=== PATIENT | male | born 1955 | race Caucasian/White ===

== ENCOUNTER → 2017-06-01 | Outpatient (CLI) | payer BC ==
[~2017-06-01] MED LIST: ACET-687 PO; AMLO5TAB2 PO; CETI10TA24 PO; GUAI600T31 PO; HYDR25TA9 PO; KENALOG-40 IM ONE; LABE200T3 PO; LACT1CAP34 PO; LAMO150T PO; LIDOCAINE 2% VIAL SQ ONE; LISI40TA PO; MULT-186 PO; SPIR25TA PO
== END | disposition home or self-care (01) ==
LOC: RAD 13:10
PROVIDERS: ATTEND Orthopaedic Surgery
DX: M16.11 Unilateral primary osteoarthritis, right hip (principal)
CPT/HCPCS: 20610; 77002; J2001; J3301; Q9967

== ENCOUNTER 2017-07-03 01:24 | Inpatient (IN) | payer BC ==
[2017-06-29 15:46] VITALS: BP 144/83
--- NOTE | 2017-06-29 16:05 | PCM.EKG ---
[facility] Test Date: 2017-06-29 Test Time: 16:03:45 Pat Name: YO HERNANDEZ Department: Room: Gender: M Quality Control Lead: TERESSA : 1955 Requested By: LUIS DANIEL MYLES Order Number: [id number] Reading MD: Measurements Intervals [place] Rate: 57 P: 64 OK: 182 QRS: 63 QRSD: 98 T: 65 QT: 436 QTc: 424 Interpretive Statements Sinus bradycardia Otherwise normal ECG No previous ECG available for comparison Please click the below link to view image of tracing.
[2017-06-29 16:29] LABS: BASOPHIL % 0.8 % (0.0-0.2); EOSINOPHIL # 0.2 10^3/uL (0.0-0.2); EOSINOPHIL % 3.6 % (0.0-5.0); HEMOGLOBIN 13.7 g/dL (13.9-16.3); LYMPHOCYTES # 1.7 10^3/uL (1.0-4.8); LYMPHOCYTES % 32.3 % (24.0-44.0); MEAN CELL HGB 31.2 pg (26-34); MEAN CELL HGB CONCENTRATION 35.2 g/dL (33-37); MEAN CORP VOLUME 88.6 fL (78-100); MEAN PLATELET VOLUME 8.6 fL (7.8-11.0); MONOCYTES # 0.9 10^3/uL (0.3-0.8); MONOCYTES % 17.1 % (5.0-12.0); NEUTROPHIL # 2.4 10^3/uL (1.8-7.7); NEUTROPHILS % 46.2 % (41.0-85.0); WHITE BLOOD CELL 5.3 10^3/uL (4.5-11.0)
[2017-06-29 16:54] LABS: CALCIUM 8.9 mg/dL (8.4-10.5); CARBON DIOXIDE 26.4 mmol/L (20.0-32)
[~2017-07-03] VITALS: Ht 172.7 cm; Wt 80.5 kg
[2017-07-03] VITALS (9 sets, daily range): BP systolic 118–178; BP diastolic 62–99
[~2017-07-03 01:24] MED LIST changes: +ACET500T73 PO; +CARV40CP PO; -KENALOG-40 IM ONE; -LIDOCAINE 2% VIAL SQ ONE
[2017-07-03] MEDS ORDERED: CELEBREX PO ONE ×4 (04:30→21:00)
[2017-07-03] MEDS ORDERED: NEURONTIN PO SCH ×2 (04:30→09:00)
[2017-07-03] MEDS ORDERED: TYLENOL PO ONE ×2 (04:30→09:00)
[2017-07-03] MEDS ORDERED: ANCEF ONE (05:05)
[2017-07-03] MEDS ORDERED: NS 100ML 100 ML IV ONE ×2 (05:06→09:33)
[2017-07-03] MEDS ORDERED: LACTATED RINGERS 1,000 ML IV ONE (06:00)
[2017-07-03] MEDS ORDERED: NEOSTIGMINE ONE (06:22)
[2017-07-03] MEDS ORDERED: TORADOL ONE (06:22)
[2017-07-03] MEDS ORDERED: DECADRON ONE (06:22)
[2017-07-03] MEDS ORDERED: ZOFRAN ONE (06:22)
[2017-07-03] MEDS ORDERED: SUBLIMAZE ONE ×2 (06:23→13:36)
[2017-07-03] MEDS ORDERED: ZEMURON IV ONE ×2 (06:23→14:29)
[2017-07-03] MEDS ORDERED: DIPRIVAN IV ONE (06:23)
[2017-07-03] MEDS ORDERED: VERSED ONE (06:23)
[2017-07-03] MEDS ORDERED: LIDOCAINE 2% VIAL ONE (06:24)
[2017-07-03] MEDS ORDERED: NAROPIN 0.5% 5 MG/ML VIAL ONE ×2 (07:36→08:24)
[2017-07-03] MEDS ORDERED: CLONIDINE 1,000 MCG/10 ML VIAL EP ONE (07:37)
[2017-07-03] MEDS ORDERED: SENSORCAINE-MPF 0.25% VIAL ONE ×2 (07:37→08:03)
[2017-07-03 08:15] LABS: CALCIUM 9.3 mg/dL (8.4-10.5); CARBON DIOXIDE 25.6 mmol/L (20.0-32)
[2017-07-03] MEDS ORDERED: ZOFRAN IV PRN (09:00)
[2017-07-03] MEDS ORDERED: DILAUDID IV PRN (09:00)
[2017-07-03] MEDS ORDERED: TYLENOL PO SCH ×2 (09:00→09:30)
[2017-07-03] MEDS ORDERED: NS 250ML 250 ML IV ONE (09:33)
[2017-07-03] MEDS ORDERED: SODIUM CHLORIDE IR ONE (09:33)
[2017-07-03] MEDS ORDERED: NS 3000ML IRR IR ONE (09:33)
[2017-07-03] MEDS ORDERED: TRANEXAMIC ACID IV ONE (10:23)
[2017-07-03] MEDS ORDERED: LACTATED RINGERS 1,000 ML ONE (13:33)
[2017-07-03] MEDS ORDERED: EPHEDRINE SULFATE ONE (13:34)
[2017-07-03] MEDS ORDERED: NORCURON ONE (13:34)
[2017-07-03] MEDS: SUBLIMAZE IV PRN ×3 (13:39→15:20)
[2017-07-03] MEDS ORDERED: ANCEF IV SCH (14:00)
[2017-07-03] MEDS ORDERED: REGLAN IV PRN (14:00)
[2017-07-03] MEDS ORDERED: NS IV SCH (14:00)
[2017-07-03] MEDS ORDERED: LACTATED RINGERS 1,000 ML IV SCH (14:00)
[2017-07-03] MEDS ORDERED: ANCEF 2 GM/D5W 50ML IV SCH (14:00)
[2017-07-03] MEDS ORDERED: CEPACOL SORE THROAT LOZENGE MM PRN (14:00)
--- NOTE | 2017-07-03 14:07 | DIREP ---
PROCEDURE:XRAY HIP MIN 2VW-RT COMPARISON:None. INDICATIONS:postop FINDINGS: BONES:Status post total right hip replacement. Hardware intact. Alignment is satisfactory JOINTS:Normal. SOFT TISSUES:Normal. OTHER:No additional findings. CONCLUSION:Satisfactory total right hip replacement Dictated by: Art Barcenas MD on 07/03/2017 at 02:06 PM
[2017-07-03] MEDS: TYLENOL #4 PO PRN ×3 (14:29→23:20)
--- NOTE | 2017-07-03 14:30 | NUR ---
C/O OF PAIN Pt C/O "ACHING PAIN AT 7/10 "RATING SCALE ON R HIP, ADMINISTERED TYLENOL #4 2 TBS PRN PER ORDER, WILL REASSESS THE PAIN.
--- NOTE | 2017-07-03 14:30 | NUR ---
ARRIVAL Pt ARRIVED TO THE UNIT ASSISTED BY OR NURSES ZULEYMA RN AND ELIZABETH RN IN HOSPITAL BED, PT AO X 4, SURGICAL DRESSING ON ON R HIP, SAND BAG ON PER DR. MYLES ORDER TILL 4 PM TODAY, ORIENTED TO ROOM, BATHROOM, CALL LIGHT, TV REMOTE. OFFERED FLUIDS AND SNACKS. IV LR INFUSING TO L FA WITH 20 G, ALEXANDRA FOOT SCD ON. INITIATED SPECIAL V/S. MOSCOSO INTACT DRAINING CLEAR YELLOW URINE. WILL CONTINUE TO MONITOR THE Pt. HEAD TO TOE ASSESSMENT COMPLETED.
[2017-07-03] MEDS: NS IV SCH ×2 (15:59→23:21)
[2017-07-03] MEDS: ANCEF IV SCH ×2 (15:59→23:21)
[2017-07-03] MEDS ORDERED: TYLENOL #4 PO SCH (16:00)
--- NOTE | 2017-07-03 16:03 | HPH ---
ADMIT DATE: 07/03/2017 CHIEF COMPLAINT: Painful right hip. HISTORY OF PRESENT ILLNESS: A 62-year-old male with right hip pain for several years. It has gotten worse in the last 3 months. He is to the point now where he has to use a cane to ambulate. He has night pain as well as pain with household ambulation. The patient rates his pain as 8-9/10 in the last 2 months. He has been on ibuprofen 600 mg 3 times a day as well as Tylenol and been on a home exercise program. He has gotten progressively worse to the point where he cannot do any of his daily activities. He has had to use a cane in the last 2-3 weeks and is being admitted for right total hip arthroplasty. MEDICATIONS: His medications include Coreg, lisinopril, amlodipine. PAST MEDICAL HISTORY: Medical problems include hypertension as well as seizure disorder. PAST SURGICAL HISTORY: Left total hip arthroplasty, cataract, ORIF of his left clavicle, right knee arthroscopy, herniorrhaphy. ALLERGIES: THE PATIENT IS ALLERGIC TO SULFA WELL TRAMADOL. FAMILY HISTORY: Positive for pancreatic cancer, lupus and hypertension. REVIEW OF SYSTEMS: Negative for chest pain, shortness of breath, nausea, vomiting, melena, hematochezia, dysuria, hematuria, fever, chills and weight loss. PHYSICAL EXAMINATION: GENERAL: Shows a healthy 62-year-old male in no acute distress. HEENT: Within normal limits. CHEST: Clear to auscultation. HEART: Regular rate and rhythm, no murmur. ABDOMEN: Soft and nontender. EXTREMITIES: Right hip has full extension. He can flex the hip to 110 degrees. His external rotation is 30, he has 20 degrees of internal rotation with pain. There is no shortening. NEUROLOGIC: He is awake and alert. He is oriented x 3. His cranial nerves 2-12 are grossly intact. He has 5/5 strength in all muscle groups of both lower and upper extremities bilaterally, symmetric. IMAGING STUDIES: X-rays in his hip as well as his MRI scan show severe arthritis about the right hip with [id number] medially and inferiorly. He also has a labral tear. ASSESSMENT: Osteoarthritis, right hip. Other diagnoses include hypertension and seizure disorder. PLAN: The patient is being admitted for right total hip arthroplasty. He understands the risk and hazards involved. Adriano Clark MD DR: NELSON/henry JOB# [id number]
--- NOTE | 2017-07-03 16:14 | OPH ---
DATE OF SURGERY: 07/03/2017 PREOPERATIVE DIAGNOSIS: Osteoarthritis of the right hip. POSTOPERATIVE DIAGNOSIS: Osteoarthritis of the right hip. OPERATIVE PROCEDURE: Right total hip arthroplasty. SURGEON: Adriano Clark MD ANESTHESIA: General endotracheal. BLOOD LOSS: 500 mL. COMPLICATIONS: None. IMPLANTS: We used a size 4 Medacta AMIS stem cemented with the 56 Versafit cup and a 56 dual-articulating liner. The head was ceramic, 28 mm short neck. DESCRIPTION OF INDICATIONS: The patient is a 62-year-old male with pain about the right hip for several years intermittently, but quite severe in the last 3 months. He has gotten to the point where he had to use a cane to ambulate. He rated his pain as 8-9/10. He takes Tylenol as well as Advil for the pain. He had pain with just household ambulation. He had difficulty walking even in his home, also had night pain. The patient's x-rays show that he was gvqy-yq-eksz medially and inferiorly about the right hip as well as superior and lateral osteophytes about the acetabulum. The patient was taken to the operating room for total hip arthroplasty for pain relief. DESCRIPTION OF PROCEDURE: The patient was placed in the operating table in the supine position. A general endotracheal anesthetic was induced without difficulty. The patient had the right foot well padded with cast padding as well as wet wrap. He was placed in the traction boot and reinforced with a small piece of egg crate mattress. The patient then had the right lower extremity attached to the traction unit. The patient had the right lower extremity then sterilely prepped and draped. The patient had an anterior incision made about the hip. Incision was taken through the skin and subcutaneous tissues. The bleeding was controlled with cautery. The tensor fascia was opened and the muscle belly was retracted laterally. The rectus fascia was opened and the rectus muscle was retracted medially. The circumflex vessels were identified and coagulated with the Aquamantys device. The fat pad over the anterior capsule was then excised. A capsular incision was made and the capsule was retracted proximally and laterally. Femoral neck cut was then made with the power saw. The head was removed with a corkscrew device. The fovea was cleared of any soft tissue and the bleeding was controlled with the Aquamantys device. The labrum was excised and the piriformis tendon was released. The patient then had the acetabulum sequentially reamed up to a 56. 56 trial cup had a good fit. The 56 acetabular component was then impacted into position using a 56 Versafit cup. The patient then had the anterior capsule released. The hip was placed in maximal external rotation as well as hyperextension. The canal was opened with a curette and a box chisel. The patient then had the canal rasped with the starter rasp and then it was sequentially rasped up to a size 4. We did a trial reduction with a 4 stem and a minus neck length. There was good stability clinically. Radiographically, the sizing of the components and the positioning of the components appeared to be satisfactory. The leg lengths seemed to be satisfactory. The trial components were then removed. The wounds were copiously irrigated. The bone ends were dried. A small cement restrictor was placed at 12 cm. The canal was then again irrigated and dried. The cement was introduced and hand packed. The stem was then cemented into position. Once the cement was removed and the cement had hardened, we did another trial reduction with the minus neck length and again there was good stability and the leg length appeared appropriate. The minus small head 28 mm ceramic with the 56 dual-articulating cup was then impacted on to the Edmondson taper neck. The hip was then reduced. Again, there was good stability and again radiographically the sizing and the leg lengths appeared appropriate. The patient then had the wounds irrigated. The Betadine was allowed to stay in the wound for 3 minutes. The patient then had 20 mL of tranexamic acid placed in the capsule. The capsule was closed with a #2 PDS in an interrupted manner. The remaining 30 mL of tranexamic acid was then placed beneath the tensor fascia and the tensor fascia was closed with #1 PDS barbed in a running manner. The wounds were irrigated and then the subcutaneous was closed with 2-0 Monocryl barbed in a running manner. The skin was closed with meggan. A large Aquacel dressing was applied and the patient was extubated in the operating room, sent to recovery in stable condition. Adriano Clark MD DR: NELSON/henry JOB# [id number]
[2017-07-03 18:27] LABS: HEMOGLOBIN 12.6 g/dL (13.9-16.3); MEAN CELL HGB 30.9 pg (26-34); MEAN CELL HGB CONCENTRATION 34.1 g/dL (33-37); MEAN CORP VOLUME 90.7 fL (78-100); MEAN PLATELET VOLUME 8.3 fL (7.8-11.0); RED CELL DISTRIBUTION WIDTH 12.1 % (11.5-14.5); WHITE BLOOD CELL 8.5 10^3/uL (4.5-11.0)
--- NOTE | 2017-07-03 18:45 | NUR ---
REPORT REPORT RECEIVED FROM Demetrius PERDOMO LVN. PT IN BED WITH AND BROTHER AT BEDSIDE. REQUESTING PAIN MEDICATION AT THIS TIME BUT NO OTHER DISTRESS NOTED AT THIS TIME. ASSUMED CARE OF PT AT THIS TIME. Addendum: 07/04/17 at 0037 by KWESI ESPARZA RN-Juno YANG REPORT RECEIVED FROM Sarah ASENCIO RN.
--- NOTE | 2017-07-03 19:36 | PRM.PN ---
Subjective Subjective Date: Jul 03, 2017 Time: 19:35 Subjective Awake and alert Some hip pain VSS NVM+ HGB 12.4 Stable Patient History: FH: lupus 32 MOTHER, , Age:73 FH: lupus 32 MOTHER, , Age:73 Hypertension 32 MOTHER, , Age:73 G8 BROTHER No known health problems 33 FATHER No Family History of: Alzheimer's disease Asthma Cerebrovascular disorder Chronic obstructive pulmonary disease Congestive heart failure Diabetes insipidus Diabetes mellitus Parkinson's disease VTE VTE Risk Total Score: 2 VTE Risk Score VTE Risk: Score 0-1 = Low Risk (Aggressive mobilization; early ambulation; no VTE prophylaxis required) Score 2: Moderate Risk (Intermittent/Pneumatic Compression Device OR Lovenox/Heparin/Coumadin) Score 3-4: High Risk (Intermittent/Pneumatic Compression Device AND Lovenox/Heparin/Coumadin) Score > or =5: Highest Risk (Intermittent/Pneumatic Compression Device AND Lovenox/Heparin/Coumadin) Review of Systems Allergies: Coded Allergies: Sulfa (Sulfonamide Antibiotics) (Verified Allergy, Severe, RASH ON FACE, ) tramadol (Verified Allergy, Severe, SEIZURES, 06/29/17) Scheduled Amlodipine Besylate (Amlodipine Besylate), 1 TAB PO DAILY, (Reported) Carvedilol Phosphate (Coreg Cr), 2 CAP PO DAILY, (Reported) Cetirizine Hcl (Zyrtec), 1 TAB PO DAILY, (Reported) Guaifenesin (Mucinex), 1 TAB PO DAILY, (Reported) Hydrochlorothiazide (Hydrochlorothiazide), 1 TAB PO DAILY, (Reported) Lactobacillus Acidophilus (Probiotic), 1 EACH PO DAILY, (Reported) Lamotrigine (Lamotrigine), 1 TAB PO BID, (Reported) Lisinopril (Lisinopril), 1 TAB PO DAILY, (Reported) Spironolactone 25MG (Aldactone 25MG), 1 TAB PO DAILY, (Reported) Scheduled PRN Acetaminophen (Acetaminophen), 2 TAB PO TID PRN for PAIN, (Reported) Discontinued Medications Acetaminophen With Codeine (Tylenol With Codeine #4 Tablet), 1-2 EACH PO Q4HR PRN for PAIN, (Reported) Discontinued Reason: No Longer Taking Labetalol Hcl (Labetalol Hcl), 2 TAB PO BID, (Reported) Discontinued Reason: No Longer Taking Multivitamin (Multi-Day Vitamins), 1 TAB PO DAILY, (Reported) Discontinued Reason: No Longer Taking Objective Vitals and I/O Vital Sign - Last 24 Hours 07/03/17 07/03/17 07/03/17 07/03/17 07:45 07:45 08:56 09:01 Temp 98.7 Pulse 65 59 58 Resp 18 18 18 B/P (MAP) 178/97 (124) 165/98 (120) 143/75 (97) Pulse Ox 98 99 99 O2 Delivery Room Air Room Air Room Air Room Air 07/03/17 07/03/17 07/03/17 07/03/17 13:20 13:20 13:34 13:50 Temp 97.8 98.3 98.0 Pulse 72 60 65 Resp 16 17 16 B/P (MAP) 126/71 (89) 123/71 (88) 119/67 (84) Pulse Ox 96 96 98 O2 Delivery Face Tent Face Tent Nasal Cannula O2 Flow Rate 10 07/03/17 07/03/17 07/03/17 07/03/17 14:02 14:30 14:30 15:12 Pulse 65 Resp 18 12 B/P (MAP) 118/62 (80) Pulse Ox 94 98 O2 Delivery Nasal Cannula Nasal Cannula Nasal Cannula O2 Flow Rate 2.00 2.00 07/03/17 07/03/17 15:12 15:30 Temp 97.1 Pulse 66 91 Resp 12 20 B/P (MAP) 118/74 (89) Pulse Ox 98 95 O2 Delivery Nasal Cannula Room Air O2 Flow Rate 2.00 FiO2 28 Medication Reconciliation Scheduled Amlodipine Besylate (Amlodipine Besylate), 1 TAB PO DAILY, (Reported) Carvedilol Phosphate (Coreg Cr), 2 CAP PO DAILY, (Reported) Cetirizine Hcl (Zyrtec), 1 TAB PO DAILY, (Reported) Guaifenesin (Mucinex), 1 TAB PO DAILY, (Reported) Hydrochlorothiazide (Hydrochlorothiazide), 1 TAB PO DAILY, (Reported) Lactobacillus Acidophilus (Probiotic), 1 EACH PO DAILY, (Reported) Lamotrigine (Lamotrigine), 1 TAB PO BID, (Reported) Lisinopril (Lisinopril), 1 TAB PO DAILY, (Reported) Spironolactone 25MG (Aldactone 25MG), 1 TAB PO DAILY, (Reported) Scheduled PRN Acetaminophen (Acetaminophen), 2 TAB PO TID PRN for PAIN, (Reported) Discontinued Medications Acetaminophen With Codeine (Tylenol With Codeine #4 Tablet), 1-2 EACH PO Q4HR PRN for PAIN, (Reported) Discontinued Reason: No Longer Taking Labetalol Hcl (Labetalol Hcl), 2 TAB PO BID, (Reported) Discontinued Reason: No Longer Taking Multivitamin (Multi-Day Vitamins), 1 TAB PO DAILY, (Reported) Discontinued Reason: No Longer Taking Course Blood Pressure Systolic: 118 Blood Pressure Diastolic: 74 Blood Pressure Mean: 89 Assessment/Plan Assessment/Plan Patient History: FH: lupus 32 MOTHER, , Age:73 FH: lupus 32 MOTHER, , Age:73 Hypertension 32 MOTHER, , Age:73 G8 BROTHER No known health problems 33 FATHER No Family History of: Alzheimer's disease Asthma Cerebrovascular disorder Chronic obstructive pulmonary disease Congestive heart failure Diabetes insipidus Diabetes mellitus Parkinson's disease LUIS DANIEL MYLES MD Jul 03, 2017 19:36
[2017-07-03] MEDS ORDERED: CELEBREX ONE (22:22)
[2017-07-03] MEDS ORDERED: TYLENOL PO PRN (22:30)
[2017-07-03] MEDS: LAMICTAL PO SCH (22:39)
[2017-07-03] MEDS: ZESTRIL PO SCH (22:42)
[2017-07-03] MEDS: ALDACTONE PO SCH (22:42)
[2017-07-03] MEDS: HYDROCHLOROTHIAZIDE PO SCH (22:43)
[2017-07-03] MEDS: NORVASC PO SCH (22:43)
[2017-07-04] VITALS: BP 148/88
[2017-07-04] MEDS: TYLENOL #4 PO PRN ×5 (03:14→22:02)
[2017-07-04 04:00] VITALS: BP 144/84
[2017-07-04 05:24] LABS: HEMOGLOBIN 11.6 g/dL (13.9-16.3); MEAN CELL HGB 30.9 pg (26-34); MEAN CELL HGB CONCENTRATION 34.2 g/dL (33-37); MEAN CORP VOLUME 90.2 fL (78-100); MEAN PLATELET VOLUME 8.3 fL (7.8-11.0); RED CELL DISTRIBUTION WIDTH 12.1 % (11.5-14.5); WHITE BLOOD CELL 9.2 10^3/uL (4.5-11.0)
--- NOTE | 2017-07-04 07:04 | NUR ---
REPORT RECEIVED REPORT FROM CELIA OROSCO AND ASSUMED CARE OF PT
[2017-07-04 07:26] VITALS: BP 147/86
[2017-07-04] MEDS: ANCEF IV SCH (08:00)
[2017-07-04] MEDS: NS IV SCH (08:00)
--- NOTE | 2017-07-04 08:40 | NUR ---
Post op pain rounds POD #1 after hip surgery. Pt is lying in bed with family in room. Pt states pain was well controlled with block. Pt came by yesterday but pt was still too sleepy to ambulate. he was concerned with nausea from previous surgeries but was very greatful that he didn't experience any with this. No complications noted. pt is very pleased with anesthetic and pain block.
--- NOTE | 2017-07-04 08:46 | PRM.PN ---
Subjective Subjective Date: Jul 04, 2017 Time: 08:46 Subjective Pain ok this am VSS NVM+ HGB 11.6 Start PT Patient History: FH: lupus 32 MOTHER, , Age:73 FH: lupus 32 MOTHER, , Age:73 Hypertension 32 MOTHER, , Age:73 G8 BROTHER No known health problems 33 FATHER No Family History of: Alzheimer's disease Asthma Cerebrovascular disorder Chronic obstructive pulmonary disease Congestive heart failure Diabetes insipidus Diabetes mellitus Parkinson's disease VTE VTE Risk Total Score: 2 VTE Risk Score VTE Risk: Score 0-1 = Low Risk (Aggressive mobilization; early ambulation; no VTE prophylaxis required) Score 2: Moderate Risk (Intermittent/Pneumatic Compression Device OR Lovenox/Heparin/Coumadin) Score 3-4: High Risk (Intermittent/Pneumatic Compression Device AND Lovenox/Heparin/Coumadin) Score > or =5: Highest Risk (Intermittent/Pneumatic Compression Device AND Lovenox/Heparin/Coumadin) Review of Systems Allergies: Coded Allergies: Sulfa (Sulfonamide Antibiotics) (Verified Allergy, Severe, RASH ON FACE, ) tramadol (Verified Allergy, Severe, SEIZURES, 06/29/17) Scheduled Amlodipine Besylate (Amlodipine Besylate), 1 TAB PO DAILY, (Reported) Carvedilol Phosphate (Coreg Cr), 2 CAP PO DAILY, (Reported) Cetirizine Hcl (Zyrtec), 1 TAB PO DAILY, (Reported) Guaifenesin (Mucinex), 1 TAB PO DAILY, (Reported) Hydrochlorothiazide (Hydrochlorothiazide), 1 TAB PO DAILY, (Reported) Lactobacillus Acidophilus (Probiotic), 1 EACH PO DAILY, (Reported) Lamotrigine (Lamotrigine), 1 TAB PO BID, (Reported) Lisinopril (Lisinopril), 1 TAB PO DAILY, (Reported) Spironolactone 25MG (Aldactone 25MG), 1 TAB PO DAILY, (Reported) Scheduled PRN Acetaminophen (Acetaminophen), 2 TAB PO TID PRN for PAIN, (Reported) Discontinued Medications Acetaminophen With Codeine (Tylenol With Codeine #4 Tablet), 1-2 EACH PO Q4HR PRN for PAIN, (Reported) Discontinued Reason: No Longer Taking Labetalol Hcl (Labetalol Hcl), 2 TAB PO BID, (Reported) Discontinued Reason: No Longer Taking Multivitamin (Multi-Day Vitamins), 1 TAB PO DAILY, (Reported) Discontinued Reason: No Longer Taking Objective Vitals and I/O Vital Sign - Last 24 Hours 07/03/17 07/03/17 07/03/17 07/03/17 08:56 09:01 13:20 13:20 Temp 97.8 Pulse 59 58 72 Resp 18 18 16 B/P (MAP) 165/98 (120) 143/75 (97) 126/71 (89) Pulse Ox 99 99 96 O2 Delivery Room Air Room Air Face Tent O2 Flow Rate 10 07/03/17 07/03/17 07/03/17 07/03/17 13:34 13:50 14:02 14:30 Temp 98.3 98.0 Pulse 60 65 65 Resp 17 16 18 B/P (MAP) 123/71 (88) 119/67 (84) 118/62 (80) Pulse Ox 96 98 94 O2 Delivery Face Tent Nasal Cannula Nasal Cannula Nasal Cannula O2 Flow Rate 2.00 07/03/17 07/03/17 07/03/17 07/03/17 14:30 15:12 15:12 15:30 Temp 97.1 Pulse 66 91 Resp 12 12 20 B/P (MAP) 118/74 (89) Pulse Ox 98 98 95 O2 Delivery Nasal Cannula Nasal Cannula Room Air O2 Flow Rate 2.00 2.00 FiO2 28 07/03/17 07/03/17 07/03/17 07/03/17 20:00 21:00 21:28 22:42 Temp 98.0 Pulse 78 91 Resp 18 20 B/P (MAP) 163/99 (120) 163/99 Pulse Ox 97 95 O2 Delivery Nasal [place] Room Air Room Air 07/03/17 07/03/17 07/03/17 07/04/17 22:42 22:43 22:43 00:00 Temp 98.9 Pulse 78 72 Resp 18 B/P (MAP) 163/99 163/99 163/99 148/88 (108) Pulse Ox 98 O2 Delivery Nasal [place] 07/04/17 07/04/17 07/04/17 04:00 07:26 07:40 Temp 98.4 98.6 Pulse 67 65 Resp 18 18 B/P (MAP) 144/84 (104) 147/86 (106) Pulse Ox 98 94 O2 Delivery Room Air Nasal [place] Room Air Intake and Output 07/03/17 07/03/17 07/04/17 15:00 23:00 07:00 Intake Total 9840 ml 1780 ml 1550 ml Output Total 500 ml 550 ml 1700 ml Balance 9340 ml 1230 ml -150 ml Medication Reconciliation Scheduled Amlodipine Besylate (Amlodipine Besylate), 1 TAB PO DAILY, (Reported) Carvedilol Phosphate (Coreg Cr), 2 CAP PO DAILY, (Reported) Cetirizine Hcl (Zyrtec), 1 TAB PO DAILY, (Reported) Guaifenesin (Mucinex), 1 TAB PO DAILY, (Reported) Hydrochlorothiazide (Hydrochlorothiazide), 1 TAB PO DAILY, (Reported) Lactobacillus Acidophilus (Probiotic), 1 EACH PO DAILY, (Reported) Lamotrigine (Lamotrigine), 1 TAB PO BID, (Reported) Lisinopril (Lisinopril), 1 TAB PO DAILY, (Reported) Spironolactone 25MG (Aldactone 25MG), 1 TAB PO DAILY, (Reported) Scheduled PRN Acetaminophen (Acetaminophen), 2 TAB PO TID PRN for PAIN, (Reported) Discontinued Medications Acetaminophen With Codeine (Tylenol With Codeine #4 Tablet), 1-2 EACH PO Q4HR PRN for PAIN, (Reported) Discontinued Reason: No Longer Taking Labetalol Hcl (Labetalol Hcl), 2 TAB PO BID, (Reported) Discontinued Reason: No Longer Taking Multivitamin (Multi-Day Vitamins), 1 TAB PO DAILY, (Reported) Discontinued Reason: No Longer Taking Course Blood Pressure Systolic: 147 Blood Pressure Diastolic: 86 Blood Pressure Mean: 106 Assessment/Plan Assessment/Plan Patient History: FH: lupus 32 MOTHER, , Age:73 FH: lupus 32 MOTHER, , Age:73 Hypertension 32 MOTHER, , Age:73 G8 BROTHER No known health problems 33 FATHER No Family History of: Alzheimer's disease Asthma Cerebrovascular disorder Chronic obstructive pulmonary disease Congestive heart failure Diabetes insipidus Diabetes mellitus Parkinson's disease LUIS DANIEL MYLES MD Jul 04, 2017 08:46
[2017-07-04] MEDS: MUCINEX PO SCH (09:00)
[2017-07-04] MEDS: COLACE PO SCH (09:00)
[2017-07-04] MEDS: BACID PO SCH (09:00)
[2017-07-04] MEDS ORDERED: NEURONTIN PO SCH ×2 (09:00→09:30)
[2017-07-04] MEDS: ZESTRIL PO SCH (09:01)
[2017-07-04] MEDS: NORVASC PO SCH (09:02)
[2017-07-04] MEDS: ALDACTONE PO SCH (09:02)
[2017-07-04] MEDS: CLARITIN PO SCH (09:02)
[2017-07-04] MEDS: XARELTO PO SCH (09:03)
[2017-07-04] MEDS: HYDROCHLOROTHIAZIDE PO SCH (09:03)
[2017-07-04] MEDS: LAMICTAL PO SCH ×2 (09:03→20:55)
[2017-07-04] MEDS: PEPCID PO SCH (09:04)
[2017-07-04] MEDS: COREG PO SCH ×2 (09:04→20:56)
--- NOTE | 2017-07-04 09:35 | NUR ---
DISCHARGE PLAN CM VISITED WITH PT AND CONCERNING PTS DISCHARGE PLAN AND NEED. PT STATED HE LIVES @ HOME WITH HIS AND HE IS INDEPENDENT ON ADLS. 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 HE STATED HE DOES NOT CURRENTLY USE ANY TYPE OF DME FOR ASSISTANCE, BUT HE HAS IT ALL IN PLACE @ HOME FROM PREVIOUS THR IF NEEDED, INCLUDING A WALKER WITH WHEELS THAT IS @ HIS BEDSIDE. PT DENIES NEEDING ANY ADDITIONAL RESOURCES @ THIS TIME WITH CONTACT INFORMATION PROVIDED. CURRENT GOAL FOR PT IS TO DISCHARGE BACK HOME WITH TO ROUTINE SELF CARE UPON DISCHARGE WITH ASSISTANCE FROM NEEDED PER PTS REQUEST. CM TO CONTINUE TO FOLLOW PTS PLAN OF CARE AND FOR FURTHER DISCHARGE NEEDS.
[2017-07-04 11:45] VITALS: BP 142/81
--- NOTE | 2017-07-04 15:01 | NUR ---
Decreased quad control today with knee buckling. Signed: 07/04/17 at 1502 by Paulette Pineda PTA PT
[2017-07-04 15:56] VITALS: BP 153/83
--- NOTE | 2017-07-04 18:52 | NUR ---
report report given to o/c shift
[2017-07-04 19:33] VITALS: BP 132/83
--- NOTE | 2017-07-04 20:25 | NUR ---
NOTIFIED DR. PALENCIA PT WANTED SLEEPING PILL. ORDER RECEIVED FOR RESTORIL 15MG PO Q HS PRN.
[2017-07-04] MEDS: RESTORIL PO PRN (22:03)
[2017-07-05 00:22] VITALS: BP 136/72
[2017-07-05] MEDS: TYLENOL #4 PO PRN ×5 (01:58→19:52)
[2017-07-05 04:15] VITALS: BP 141/87
[2017-07-05 05:25] LABS: BASOPHIL % 0.3 % (0.0-0.2); EOSINOPHIL # 0.1 10^3/uL (0.0-0.2); EOSINOPHIL % 1.2 % (0.0-5.0); HEMOGLOBIN 11.8 g/dL (13.9-16.3); LYMPHOCYTES % 26.2 % (24.0-44.0); MEAN CELL HGB 30.8 pg (26-34); MEAN CELL HGB CONCENTRATION 33.4 g/dL (33-37); MEAN CORP VOLUME 92.2 fL (78-100); MEAN PLATELET VOLUME 8.4 fL (7.8-11.0); MONOCYTES % 12.6 % (5.0-12.0); NEUTROPHIL # 4.6 10^3/uL (1.8-7.7); NEUTROPHILS % 59.4 % (41.0-85.0); RED CELL DISTRIBUTION WIDTH 12.4 % (11.5-14.5); WHITE BLOOD CELL 7.8 10^3/uL (4.5-11.0)
--- NOTE | 2017-07-05 06:40 | NUR ---
REPORT REPORT RECEIVED FROM [facility]IN[facility]OC
[2017-07-05 07:31] VITALS: BP 168/94
[2017-07-05] MEDS: XARELTO PO SCH (08:25)
[2017-07-05] MEDS: NORVASC PO SCH (08:25)
[2017-07-05] MEDS: ZESTRIL PO SCH (08:25)
[2017-07-05] MEDS: ALDACTONE PO SCH (08:25)
[2017-07-05] MEDS: PEPCID PO SCH (08:26)
[2017-07-05] MEDS: HYDROCHLOROTHIAZIDE PO SCH (08:26)
[2017-07-05] MEDS: CLARITIN PO SCH (08:26)
[2017-07-05] MEDS: LAMICTAL PO SCH ×2 (08:26→21:12)
[2017-07-05] MEDS: COLACE PO SCH (08:26)
[2017-07-05] MEDS: COREG PO SCH ×2 (08:26→21:14)
[2017-07-05] MEDS: MUCINEX PO SCH (08:27)
[2017-07-05] MEDS: BACID PO SCH (08:27)
--- NOTE | 2017-07-05 08:54 | PRM.PN ---
Subjective Subjective Date: Jul 05, 2017 Time: 08:53 Subjective Pain better Afebrile More ambulatory [id number] Stable Cont with PT Patient History: FH: lupus 32 MOTHER, , Age:73 FH: lupus 32 MOTHER, , Age:72 Hypertension 32 MOTHER, , Age:73 G8 BROTHER No known health problems 33 FATHER No Family History of: Alzheimer's disease Asthma Cerebrovascular disorder Chronic obstructive pulmonary disease Congestive heart failure Diabetes insipidus Diabetes mellitus Parkinson's disease VTE VTE Risk Total Score: 2 VTE Risk Score VTE Risk: Score 0-1 = Low Risk (Aggressive mobilization; early ambulation; no VTE prophylaxis required) Score 2: Moderate Risk (Intermittent/Pneumatic Compression Device OR Lovenox/Heparin/Coumadin) Score 3-4: High Risk (Intermittent/Pneumatic Compression Device AND Lovenox/Heparin/Coumadin) Score > or =5: Highest Risk (Intermittent/Pneumatic Compression Device AND Lovenox/Heparin/Coumadin) Review of Systems Allergies: Coded Allergies: Sulfa (Sulfonamide Antibiotics) (Verified Allergy, Severe, RASH ON FACE, ) tramadol (Verified Allergy, Severe, SEIZURES, 06/29/17) Scheduled Amlodipine Besylate (Amlodipine Besylate), 1 TAB PO DAILY, (Reported) Carvedilol Phosphate (Coreg Cr), 2 CAP PO DAILY, (Reported) Cetirizine Hcl (Zyrtec), 1 TAB PO DAILY, (Reported) Guaifenesin (Mucinex), 1 TAB PO DAILY, (Reported) Hydrochlorothiazide (Hydrochlorothiazide), 1 TAB PO DAILY, (Reported) Lactobacillus Acidophilus (Probiotic), 1 EACH PO DAILY, (Reported) Lamotrigine (Lamotrigine), 1 TAB PO BID, (Reported) Lisinopril (Lisinopril), 1 TAB PO DAILY, (Reported) Spironolactone 25MG (Aldactone 25MG), 1 TAB PO DAILY, (Reported) Scheduled PRN Acetaminophen (Acetaminophen), 2 TAB PO TID PRN for PAIN, (Reported) Discontinued Medications Acetaminophen With Codeine (Tylenol With Codeine #4 Tablet), 1-2 EACH PO Q4HR PRN for PAIN, (Reported) Discontinued Reason: No Longer Taking Labetalol Hcl (Labetalol Hcl), 2 TAB PO BID, (Reported) Discontinued Reason: No Longer Taking Multivitamin (Multi-Day Vitamins), 1 TAB PO DAILY, (Reported) Discontinued Reason: No Longer Taking Objective Vitals and I/O Vital Sign - Last 24 Hours 07/04/17 07/04/17 07/04/17 07/04/17 09:01 09:02 09:02 09:03 Pulse 65 B/P (MAP) 147/86 147/86 147/86 147/86 07/04/17 07/04/17 07/04/17 07/04/17 09:04 09:44 11:45 12:30 Temp 98.1 Pulse 65 71 56 Resp 18 18 B/P (MAP) 147/86 142/81 (101) Pulse Ox 99 97 O2 Delivery Room Air Nasal [place] Room Air FiO2 21 07/04/17 07/04/17 07/04/17 07/04/17 15:56 18:58 19:33 20:56 Temp 98.5 98.4 Pulse 58 65 61 61 Resp 18 18 18 B/P (MAP) 153/83 (106) 132/83 (99) 132/83 Pulse Ox 96 96 95 O2 Delivery Room Air Room Air Room Air 07/04/17 07/05/17 07/05/17 07/05/17 23:15 00:22 04:15 07:31 Temp 98.2 98.5 98.6 Pulse 55 61 56 Resp 18 18 18 B/P (MAP) 136/72 (93) 141/87 (105) 168/94 (118) Pulse Ox 94 93 95 O2 Delivery Room Air Room Air Room Air Room Air 07/05/17 07/05/17 07/05/17 07/05/17 07:35 08:25 08:25 08:25 Pulse 56 B/P (MAP) 168/94 168/94 168/94 O2 Delivery Room Air 07/05/17 07/05/17 08:26 08:26 Pulse 56 B/P (MAP) 168/94 168/94 Intake and Output 07/04/17 07/04/17 07/05/17 15:00 23:00 07:00 Intake Total 594 ml 3600 ml 600 ml Output Total 2200 ml 1700 ml 3100 ml Balance -1606 ml 1900 ml -2500 ml Medication Reconciliation Scheduled Amlodipine Besylate (Amlodipine Besylate), 1 TAB PO DAILY, (Reported) Carvedilol Phosphate (Coreg Cr), 2 CAP PO DAILY, (Reported) Cetirizine Hcl (Zyrtec), 1 TAB PO DAILY, (Reported) Guaifenesin (Mucinex), 1 TAB PO DAILY, (Reported) Hydrochlorothiazide (Hydrochlorothiazide), 1 TAB PO DAILY, (Reported) Lactobacillus Acidophilus (Probiotic), 1 EACH PO DAILY, (Reported) Lamotrigine (Lamotrigine), 1 TAB PO BID, (Reported) Lisinopril (Lisinopril), 1 TAB PO DAILY, (Reported) Spironolactone 25MG (Aldactone 25MG), 1 TAB PO DAILY, (Reported) Scheduled PRN Acetaminophen (Acetaminophen), 2 TAB PO TID PRN for PAIN, (Reported) Discontinued Medications Acetaminophen With Codeine (Tylenol With Codeine #4 Tablet), 1-2 EACH PO Q4HR PRN for PAIN, (Reported) Discontinued Reason: No Longer Taking Labetalol Hcl (Labetalol Hcl), 2 TAB PO BID, (Reported) Discontinued Reason: No Longer Taking Multivitamin (Multi-Day Vitamins), 1 TAB PO DAILY, (Reported) Discontinued Reason: No Longer Taking Course Blood Pressure Systolic: 168 Blood Pressure Diastolic: 94 Blood Pressure Mean: 118 Assessment/Plan Assessment/Plan Patient History: FH: lupus 32 MOTHER, , Age:72 FH: lupus 32 MOTHER, , Age:72 Hypertension 32 MOTHER, , Age:72 G8 BROTHER No known health problems 33 FATHER No Family History of: Alzheimer's disease Asthma Cerebrovascular disorder Chronic obstructive pulmonary disease Congestive heart failure Diabetes insipidus Diabetes mellitus Parkinson's disease LUIS DANIEL MYLES MD Jul 05, 2017 08:54
--- NOTE | 2017-07-05 09:09 | NUR ---
STATUS PT WORKED WITH PT. PT AMBULATED APROX 200 FEET WITH STANDBY ASSIST. PT IN ROOM AT THIS TIME CALL LIGHT IN REACH
--- NOTE | 2017-07-05 09:24 | NUR ---
RT RT INCREASE PT OXYGEN ON BIPAP TO 75% Addendum: 07/05/17 at 1253 by Dallas Wisdom RN - M/S RN INCORRECT PT
[2017-07-05 12:37] VITALS: BP 140/87
--- NOTE | 2017-07-05 12:52 | NUR ---
PT AMBULATED 200 FEET WITH WALKER STAND BY ASSIST BY FAMILY
--- NOTE | 2017-07-05 13:46 | NUR ---
STATUS PT IS DUE TO VOID AT 1430. PT STATES HE IS STARTING TO FEEL SOME DISCOMFORT. EDUCATED PT THE POSSIBILITY OF A STRAIGHT CATH TO RECEIVE THE PRESSURE. PT UNDERSTANDS AND WILL ATTEMPT TO VOID BEFORE CUT OFF TIME
--- NOTE | 2017-07-05 14:43 | NUR ---
VOIDED PT VOIDED 300ML OF YELLOW URINE AT THIS TIME
[2017-07-05 20:05] VITALS: BP 151/87
--- NOTE | 2017-07-05 20:19 | CNH ---
DATE OF CONSULTATION: 07/04/2017 CONSULT/HISTORY AND PHYSICAL REFERRINGPHYSICIAN: Dr. Clark of Orthopedic surgery. REASON FOR CONSULTATION: Medical management of multiple medical problems. HISTORY OF PRESENT ILLNESS: The patient is a very pleasant 62-year-old man with a past medical history significant for hypertension, coronary artery disease, seizure disorder who presented after right total hip arthroplasty. At time of exam, pain was well controlled. He was out of bed to chair. He denied any nausea. He has a relatively good functional status. There are no complaints of chest pain or difficulty breathing. He has had no recent medication changes. PAST MEDICAL HISTORY: Includes hypertension, coronary artery disease and seizure disorder. PAST SURGICAL HISTORY: He has left total hip arthroplasty, now status post right total hip arthroplasty. He has cataract surgery, ORIF of left clavicle, right knee arthroscopy, herniorrhaphy. ALLERGIES: ALLERGIC TO SULFA AND TRAMADOL. HOME MEDICATIONS: List includes Tylenol as needed, amlodipine 5 mg daily, carvedilol 40 mg daily, Zyrtec 10 mg daily, Mucinex daily, hydrochlorothiazide 25 mg daily, probiotic daily, lamotrigine 150 mg twice a day, lisinopril 40 mg daily and Aldactone 25 mg daily. SOCIAL HISTORY: Does live at home, has a good functional status. Denies any alcohol, tobacco or illicit drug use history. FAMILY HISTORY: Negative for early coronary artery disease and diabetes. REVIEW OF SYSTEMS: CARDIAC: Denies chest pain, shortness of breath and dyspnea on exertion. PULMONARY: No cough, sputum production or pleuritic chest pain. GASTROINTESTINAL: No nausea, vomiting, diarrhea or constipation. All else negative in 10 point review of system except as in HPI. PHYSICAL EXAMINATION: VITAL SIGNS: At time of being seen, height 172.7 cm, weight 82.6 kilograms. Temperature 98.1, pulse 56, respiratory rate is 18, blood pressure 142/81 and O2 saturation 97% on room air. GENERAL: He is alert, in no acute distress at time of exam. HEENT: Pupils equal, round, reactive to light. Sclerae are anicteric. Oropharynx is clear. Mucous membranes are moist. NECK: Supple, no lymphadenopathy. CARDIOVASCULAR: At time of exam is regular rate and rhythm. LUNGS: Clear bilaterally. No wheezing. ABDOMEN: Soft. Bowel sounds are present, nontender to palpation. EXTREMITIES: No cyanosis, clubbing or significant edema. NEUROLOGIC: Grossly nonfocal. LABORATORY DATA: CBC: White count is 9.2, hemoglobin 11.6 and platelets 215. Recently, he has sodium 129. 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 1. We will continue his current cardiovascular medications. 2. We will follow hemoglobin. He does not need transfusion at this time. 3. Continue his anti-seizure medications. He has had no breakthrough seizures. 4. DVT prophylaxis with factor 10a inhibitor. Time spent on 07/04/2017 is 45 minutes. This plan was discussed with the patient. He is his own decision maker. He does understand and concur with plans. Alessandro Lozada MD DR: JOSH/henry JOB# [id number]
[2017-07-05] MEDS: RESTORIL PO PRN (21:14)
--- NOTE | 2017-07-05 22:45 | NUR ---
Pt up to bathroom with stand-by assist, pt voided 400ml of pale yellow urine with slight hematuria noted as well, pt c/o burning upon urination, small blood clot noted in urine. Pt verbalized concerned over burning, explained that this can be normal after having a catheter and it should get better within the next few voids. Pt verbalized understanding. Will continue to monitor.
--- NOTE | 2017-07-06 00:15 | NUR ---
Pt up to bathroom to void, one small blood clot again noted in pale yellow urine, no further blood noted in urine at this time. Pt verbalized concern over continued blood clots in urine, pt denies any burning with urination for this void, explained to patient again that this can be expected after having a urinary catheter and being on blood thinners, explained that it should clear up in the next few voids. Pt verbalized understanding, will continue to monitor output closely.
[2017-07-06 00:39] VITALS: BP 161/86
--- NOTE | 2017-07-06 01:30 | NUR ---
Pt again up to void, no blood clots in urine noted, urine is not blood tinged and pt denies c/o pain with voiding. Will continue to monitor output closely.
[2017-07-06] MEDS: TYLENOL #4 PO PRN ×2 (01:50→11:53)
[2017-07-06 05:33] VITALS: BP 141/77
[2017-07-06 07:21] VITALS: BP 148/96
[2017-07-06] MEDS: ZESTRIL PO SCH (08:50)
[2017-07-06] MEDS: NORVASC PO SCH (08:50)
[2017-07-06] MEDS: ALDACTONE PO SCH (08:51)
[2017-07-06] MEDS: BACID PO SCH (08:51)
[2017-07-06] MEDS: CLARITIN PO SCH (08:51)
[2017-07-06] MEDS: MUCINEX PO SCH (08:52)
[2017-07-06] MEDS: HYDROCHLOROTHIAZIDE PO SCH (08:52)
[2017-07-06] MEDS: PEPCID PO SCH (08:53)
[2017-07-06] MEDS: LAMICTAL PO SCH (08:56)
[2017-07-06] MEDS: XARELTO PO SCH (08:56)
[2017-07-06] MEDS: COLACE PO SCH (08:56)
[2017-07-06] MEDS: COREG PO SCH (09:09)
[2017-07-06 11:27] VITALS: BP 139/85
--- NOTE | 2017-07-06 12:37 | PRM.PN ---
Subjective Subjective Date: Jul 06, 2017 Time: 12:37 Subjective Independent with PT Pain ok VSS Wound ok Will dc Patient History: FH: lupus 32 MOTHER, , Age:73 FH: lupus 32 MOTHER, , Age:73 Hypertension 32 MOTHER, , Age:73 G8 BROTHER No known health problems 33 FATHER No Family History of: Alzheimer's disease Asthma Cerebrovascular disorder Chronic obstructive pulmonary disease Congestive heart failure Diabetes insipidus Diabetes mellitus Parkinson's disease VTE VTE Risk Total Score: 2 VTE Risk Score VTE Risk: Score 0-1 = Low Risk (Aggressive mobilization; early ambulation; no VTE prophylaxis required) Score 2: Moderate Risk (Intermittent/Pneumatic Compression Device OR Lovenox/Heparin/Coumadin) Score 3-4: High Risk (Intermittent/Pneumatic Compression Device AND Lovenox/Heparin/Coumadin) Score > or =5: Highest Risk (Intermittent/Pneumatic Compression Device AND Lovenox/Heparin/Coumadin) Review of Systems Allergies: Coded Allergies: Sulfa (Sulfonamide Antibiotics) (Verified Allergy, Severe, RASH ON FACE, ) tramadol (Verified Allergy, Severe, SEIZURES, 06/29/17) Scheduled Amlodipine Besylate (Amlodipine Besylate), 1 TAB PO DAILY, (Reported) Carvedilol Phosphate (Coreg Cr), 2 CAP PO DAILY, (Reported) Cetirizine Hcl (Zyrtec), 1 TAB PO DAILY, (Reported) Guaifenesin (Mucinex), 1 TAB PO DAILY, (Reported) Hydrochlorothiazide (Hydrochlorothiazide), 1 TAB PO DAILY, (Reported) Lactobacillus Acidophilus (Probiotic), 1 EACH PO DAILY, (Reported) Lamotrigine (Lamotrigine), 1 TAB PO BID, (Reported) Lisinopril (Lisinopril), 1 TAB PO DAILY, (Reported) Spironolactone 25MG (Aldactone 25MG), 1 TAB PO DAILY, (Reported) Scheduled PRN Acetaminophen (Acetaminophen), 2 TAB PO TID PRN for PAIN, (Reported) Discontinued Medications Acetaminophen With Codeine (Tylenol With Codeine #4 Tablet), 1-2 EACH PO Q4HR PRN for PAIN, (Reported) Discontinued Reason: No Longer Taking Labetalol Hcl (Labetalol Hcl), 2 TAB PO BID, (Reported) Discontinued Reason: No Longer Taking Multivitamin (Multi-Day Vitamins), 1 TAB PO DAILY, (Reported) Discontinued Reason: No Longer Taking Objective Vitals and I/O Vital Sign - Last 24 Hours 07/05/17 07/05/17 07/05/17 07/05/17 19:45 20:05 21:14 21:38 Temp 98.4 Pulse 58 60 58 Resp 20 16 B/P (MAP) 151/87 (108) 151/87 Pulse Ox 97 94 O2 Delivery Room Air Room Air Room Air 07/06/17 07/06/17 07/06/17 07/06/17 00:39 05:33 07:21 07:46 Temp 97.7 97.9 98.4 Pulse 54 63 58 Resp 16 16 16 B/P (MAP) 161/86 (111) 141/77 (98) 148/96 (113) Pulse Ox 96 96 96 O2 Delivery Room Air Room Air Room Air Room Air 07/06/17 07/06/17 07/06/17 07/06/17 07:57 08:50 08:50 08:51 Pulse 58 58 Resp 16 B/P (MAP) 148/96 148/96 148/96 Pulse Ox 96 O2 Delivery Room Air FiO2 21 07/06/17 07/06/17 07/06/17 08:52 09:09 11:27 Temp 98.3 Pulse 58 60 Resp 16 B/P (MAP) 148/96 148/96 139/85 (103) Pulse Ox 94 O2 Delivery Room Air Intake and Output 07/05/17 07/05/17 07/06/17 15:00 23:00 07:00 Intake Total 2800 ml 580 ml Output Total 300 ml 2100 ml 2900 ml Balance -300 ml 700 ml -2320 ml Medication Reconciliation Scheduled Amlodipine Besylate (Amlodipine Besylate), 1 TAB PO DAILY, (Reported) Carvedilol Phosphate (Coreg Cr), 2 CAP PO DAILY, (Reported) Cetirizine Hcl (Zyrtec), 1 TAB PO DAILY, (Reported) Guaifenesin (Mucinex), 1 TAB PO DAILY, (Reported) Hydrochlorothiazide (Hydrochlorothiazide), 1 TAB PO DAILY, (Reported) Lactobacillus Acidophilus (Probiotic), 1 EACH PO DAILY, (Reported) Lamotrigine (Lamotrigine), 1 TAB PO BID, (Reported) Lisinopril (Lisinopril), 1 TAB PO DAILY, (Reported) Spironolactone 25MG (Aldactone 25MG), 1 TAB PO DAILY, (Reported) Scheduled PRN Acetaminophen (Acetaminophen), 2 TAB PO TID PRN for PAIN, (Reported) Discontinued Medications Acetaminophen With Codeine (Tylenol With Codeine #4 Tablet), 1-2 EACH PO Q4HR PRN for PAIN, (Reported) Discontinued Reason: No Longer Taking Labetalol Hcl (Labetalol Hcl), 2 TAB PO BID, (Reported) Discontinued Reason: No Longer Taking Multivitamin (Multi-Day Vitamins), 1 TAB PO DAILY, (Reported) Discontinued Reason: No Longer Taking Course Blood Pressure Systolic: 139 Blood Pressure Diastolic: 85 Blood Pressure Mean: 103 Assessment/Plan Assessment/Plan Patient History: FH: lupus 32 MOTHER, , Age:73 FH: lupus 32 MOTHER, , Age:73 Hypertension 32 MOTHER, , Age:73 G8 BROTHER No known health problems 33 FATHER No Family History of: Alzheimer's disease Asthma Cerebrovascular disorder Chronic obstructive pulmonary disease Congestive heart failure Diabetes insipidus Diabetes mellitus Parkinson's disease LUIS DANIEL MYLES MD Jul 06, 2017 12:37
[2017-07-06] MEDS ORDERED: ACET-687 PO (13:22)
[2017-07-06] MEDS ORDERED: ASPI325T17 PO (13:22)
--- NOTE | 2017-07-06 14:40 | NUR ---
DISCHARGE Pt discharged. Gave pt discharge instructions and pt has no concerns or questions @ this time. Pt transported off of unit by [facility] staff via wheelchair. No s/s of distress noted @ time of discharge
[2017-07-06 15:24] VITALS: BP 139/85
--- NOTE | 2017-07-06 22:09 | DSH ---
DATE OF DISCHARGE: 07/06/2017 ADMITTING DIAGNOSIS: Osteoarthritis of the right hip. OTHER DIAGNOSES: Include hypertension and seizure disorder. DISCHARGE DIAGNOSES: Osteoarthritis of the right hip plus postoperative anemia, expected. OPERATIVE PROCEDURE DATE: 07/03/2017. PROCEDURE PERFORMED: Right total hip arthroplasty. CONSULTATIONS: Will be Dr. Lozada. COMPLICATIONS: None. SUMMARY OF ADMISSION: The patient is a 62-year-old male with right hip pain off and on for several years, but worse in the last 3 months. He had pain that he rated a 9/10. He had to use a cane and had pain with just household ambulation. The x-rays showed that he had [id number] about the right hip. He was taken to the operating room on 07/03/2017 for right total hip arthroplasty. The patient's surgery was performed without incident. Postoperatively, he was awake and alert, had a normal neurovascular exam. He has had physical therapy and occupational therapy for gait training and ADLs. He has been on a regular diet throughout his postoperative course. He tolerated it well. He has been on Xarelto as well as foot pump, SCDs and early ambulation for DVT prophylaxis. On discharge, the patient was independent with his PT and his OT. His wound was benign. His most recent hemoglobin was 12. The patient will be instructed to leave his Aquacel dressing intact. He will use his walker to ambulate and weightbear as tolerated. He will use ice packs 3 times a day for an hour and see me in the office in 1 week. Otherwise, he will be asked to use aspirin 325 mg twice a day for a month for DVT prophylaxis. We will give him a prescription for Tylenol #4 for the pain. Adriano Clark MD DR: NELSON/henry JOB# [id number]
== END 2017-07-06 14:40 | disposition home or self-care (01) | DRG 470 ==
LOC: MS 01:24 → EDPENDDISTM 07-06 14:40
PROVIDERS: ADMIT Orthopaedic Surgery; ATTEND Orthopaedic Surgery
PROC: 0SR9049 Replacement of Right Hip Joint with Ceramic on Polyethylene Synthetic Substitute, Cemented, Open Approach (ICD-10-PCS; principal; 2017-07-03 10:18)
DX: M16.11 Unilateral primary osteoarthritis, right hip (principal); Z96.642 Presence of left artificial hip joint; D63.8 Anemia in other chronic diseases classified elsewhere; I25.10 Atherosclerotic heart disease of native coronary artery without angina pectoris; G40.909 Epilepsy, unspecified, not intractable, without status epilepticus; I10 Essential (primary) hypertension; Z80.0 Family history of malignant neoplasm of digestive organs; Z82.49 Family history of ischemic heart disease and other diseases of the circulatory system; Z88.2 Allergy status to sulfonamides; Z88.6 Allergy status to analgesic agent; Z98.49 Cataract extraction status, unspecified eye
CPT/HCPCS: 36415; 64447; 73502; 76000; 80048; 80053; 85025; 85027; 87070; 93005; 97161; 97166; A4338; J0690; J1100; J1885; J2001; J2250; J2405; J2795; J3010; J3490; J7030; J7050; J7120; 97110-GP; 97116-GP; 97535-GO; C1776; G8978-CJ; G8979-CI; G8987; G8988; J2710; J8499